=== PATIENT | female | born 1960 | race Caucasian/White ===

== ENCOUNTER → 2019-10-17 | Outpatient (CLI) | payer OTHER ==
--- NOTE | 2019-10-17 22:57 | CONS ---
CONSULTATION DATE OF SERVICE: 10/17/2019 This patient is a 59-year-old lady who [facility] for possible obstructive sleep apnea-hypopnea syndrome and significant excessive daytime sleepiness. HISTORY OF PRESENT ILLNESS/SLEEP-WAKE EVALUATION: Patient's usual sleep schedule on working days is from 11:30 p.m. until 7 a.m. and on weekends from midnight until 7 a.m. No problems with falling asleep, although she has a TV in bedroom. She sleeps on the side position. She snores loudly and has witnessed episodes of stopped breathing during sleep. She wakes up from sleep 2 times with nocturia. In the morning, the patient wakes up tired, falling asleep during the day, worrying about her sleep. [place] Sleepiness Scale is in extremely high range at 19. She may take a nap around 1 p.m. She usually feels refreshed after a nap. She may see vivid dreams nap. She drinks about 3 caffeinated beverages during the day. She may start to see her dreams right away after closing her eyes when she goes to bed; possible hypnagogic hallucinations. No history of sleep paralysis or cataplexy. Positive history of sleeptalking. Positive history of [id number] movements with her arms. No history of sleepwalking. PAST MEDICAL HISTORY: Positive for hypothyroidism, acid reflux. Recently some swelling and redness of left leg. Evaluation for deep venous thrombosis was negative. On treatment with antibiotic. PAST SURGICAL HISTORY: Partial hysterectomy in 2007, appendectomy, balloon distention of esophagus. MEDICATIONS: Levothyroxine, cephalexin. REVIEW OF SYSTEMS: Awakenings from sleep. Significant excessive daytime sleepiness. FAMILY HISTORY: Hypertension, heart problems, hyperlipidemia, stroke, sleep apnea, diabetes, thyroid problem, mental illness. PHYSICAL EXAMINATION: GENERAL: A pleasant lady without distress. VITAL SIGNS: BP 147/92, HR 78, RR 14, height 5 feet 4-1/2 inches, weight 263.4 pounds, body mass index 44.4, temperature 98.2, oxygen saturation at room air 96%. HEENT: PERRLA, EOMI. Evaluation of oropharynx showed tongue protrudes midline. Extremely low position of soft palate. Mallampati IV. Some restriction of nasal breathing. NECK: Supple. No JVD. Thyroid is not palpable. Wide neck; 19-1/2 inches in circumference. LUNGS: Clear to percussion and to auscultation. Good air exchange. No wheezing or rhonchi. HEART: S1, S2 regular. No murmurs, gallops or rubs. ABDOMEN: Obese. EXTREMITIES: One plus ankle edema of right leg. Slight redness of the lower part of right leg. [employer]: Awake, alert, and oriented X3. Cranial nerves 2 to 7 intact. There is no fasciculation or atrophy. noted. No focal deficits observed. IMPRESSION: 1. Loud snoring, witnessed episodes of stopped breathing during sleep, extremely low position of soft palate, Mallampati IV, wide neck, 19-1/2 inches in circumference, significant sleepiness during the day; obstructive sleep apnea-hypopnea syndrome. 2. Obesity; body mass index 44.4. 3. Significant excessive daytime sleepiness. [place] Sleepiness Scale is 19. Possibly hypnagogic hallucinations. Differential diagnosis includes hypersomnia. 4. Hypothyroidism. 5. Status post partial hysterectomy in 2007. 6. Acid reflux. 7. Status post balloon distention of esophagus. 8. Status post appendectomy. 9. Recent redness and swelling of the right lower leg. PLAN: 1. Polysomnography for evaluation of patient's breathing during sleep. 2. CPAP/BiPAP titration if sleep study confirms obstructive sleep apnea-hypopnea syndrome. 3. Preferable position during sleep on the side. 4. No driving if patient feels any sleepiness. 5. I will see patient for follow up visit to explain results of testing and following plan. 6. The patient could be a candidate for multiple sleep latency test for objective evaluation of her symptoms of excessive daytime sleepiness, differential diagnosis of hypersomnia. Thank you very much for referring this patient for consultation. Sincerely, Cristian Jeronimo MD, PhD, FAASM Diplomat of [employer] [facility] [place] MMODL / SIVAN: [id number] /
== END | disposition home or self-care (01) ==
LOC: SLEEP 16:30
PROVIDERS: ATTEND Internal Medicine
DX: G47.33 Obstructive sleep apnea (adult) (pediatric) (principal); E66.9 Obesity, unspecified; Z68.41 Body mass index [BMI] 40.0-44.9, adult; E03.9 Hypothyroidism, unspecified; K21.9 Gastro-esophageal reflux disease without esophagitis; Z90.711 Acquired absence of uterus with remaining cervical stump; R22.41 Localized swelling, mass and lump, right lower limb; Z98.890 Other specified postprocedural states; Z79.2 Long term (current) use of antibiotics; Z79.899 Other long term (current) drug therapy